=== PATIENT | female | born 1965 | race Caucasian/White ===

== ENCOUNTER 2017-11-08 06:21 | Day surgery (SDC) | payer OTHER ==
[2017-11-08] MEDS ORDERED: FENTAnyl 50 MCG/ML VIAL (09:04)
[2017-11-08] MEDS ORDERED: MIDAZOLAM 1 MG/ML 2 ML INJ (09:04)
== END 2017-11-08 10:31 | disposition home or self-care (01) ==
LOC: GIL 06:21
DX: Z12.11 Encounter for screening for malignant neoplasm of colon (principal); D12.3 Benign neoplasm of transverse colon
CPT/HCPCS: 45380; 88305

== ENCOUNTER → 2018-11-21 | Outpatient (CLI) | payer OTHER | END | disposition home or self-care (01) | LOC: U/S 08:28 | DX: C50.919 Malignant neoplasm of unspecified site of unspecified female breast (principal); R79.89 Other specified abnormal findings of blood chemistry | CPT/HCPCS: 76700 ==